=== PATIENT | female | born 1980 | race Caucasian/White ===

== ENCOUNTER 2019-03-07 11:02 | Inpatient (IN) | payer OTHER ==
[~2019-03-07] VITALS: Ht 167.6 cm; Wt 74.4 kg
--- NOTE | ~2019-03-07 | OP ---
[address] [address] OPERATIVE REPORT Name: RANDISHAHLA Room: [address] IN M.R.#: [id number] Admission: 03/07/19 Attend Phys: Ethan Andrews MD Discharge: Date of : 76 Report #: [id number] THIS REPORT FOR: //name// CC: [facility] physician/PCP Ethan Andrews DATE OF SERVICE: 03/07/2019 PREOPERATIVE DIAGNOSIS: Right ureteral stone with sepsis. POSTOPERATIVE DIAGNOSIS: Right ureteral stone with sepsis. PROCEDURES: Panendoscopy and cystoscopy, right retrograde pyelogram, right double-J stent. COMPLICATION: No complication. INDICATIONS: This is a 39-year-old female visiting from [place]. She has a known history of stones. She had severe right flank pain, nausea, vomiting and low grade fever to 100.1. She also has a blood pressure in the 80s systolically. Her urinalysis had significant pyuria. The patient was given options of treatment and I recommended right ureteral stent and then eventual follow up in [place] to take care of her stone. She understands risks of bleeding, infection, need for another procedure, cardiovascular and pulmonary complications and she voiced understanding that she is to follow up in [place] for her stent. I gave her the name of Dr. Philippe Watson as one example of urologists in [place]. DESCRIPTION OF PROCEDURE: After informed consent was obtained, the patient was sterilely prepped and draped in dorsal lithotomy position, given appropriate antibiotic Cipro. Cystoscopy was carried out. Her urethral meatus was stenotic, down to approximately 15-Hungarian. I was able to dilate it with Arnaldo sounds up to 24-Hungarian and got the 23-Hungarian obturator placed. No abnormalities seen in the bladder. There was a little bit of milky urine, but not obvious pus in the bladder. Retrograde pyelogram was performed under low pressure showing the filling defect in the mid ureter that corresponded with the CT scan, which is approximately 6 x 9 mm in size in the upper mid ureter. A sensor wire was used and passed easily by the stone into the upper tract and a 6 x 28 contour stent was then placed showing good curl in the kidney and good curl in the bladder. There was a mild hydronephrotic drip of somewhat milky urine, but not overt pus. The patient tolerated this well, taken to recovery room in good condition. Her bladder was drained and lidocaine was instilled. By: [id number] Chanel MD /mila
[2019-03-07 11:21] VITALS: BP 109/61
[2019-03-07 11:26] LABS: URINE BILIRUBIN NEGATIVE (Negative); URINE BLOOD 2+ (Negative); URINE CLARITY SL CLOUDY; URINE COLOR YELLOW; URINE GLUCOSE-RANDOM NEGATIVE (Negative); URINE KETONES NEGATIVE (Negative); URINE LEUKOCYTES-REFLEX TRACE (Negative); URINE NITRITE-REFLEX POSITIVE (Negative); URINE PROTEIN 2+ (Negative); URINE SPECIFIC GRAVITY 1.025 (1.005-1.030); URINE UROBILINOGEN 0.2 E.U./dl (0.2-1.0)
[2019-03-07 11:39] LABS: MUCUS >6 Heavy strn/LPF (None Seen); SQUAMOUS >10 Many /LPF (0-3)
[2019-03-07 11:40] LABS: HYALINE CASTS 0-3 Few /LPF (None Seen); URINE WBC-REFLEX >25 Many /HPF (0-5); WBC CLUMPS Few (None Seen)
[2019-03-07 11:41] LABS: BACTERIA-REFLEX >30 Many /HPF (None Seen); URINE RBC 3-10 Few /HPF (0-2)
[2019-03-07 12:00] LABS: HEMATOCRIT 42.9 % (37.0-47.0); HEMOGLOBIN 14.5 gm/dL (12.0-15.0); MCHC 33.9 g/dL (28.0-37.0); MCV 88.7 fL (80.0-100.0); MPV 8.3 fl. (7.2-11.1); NUCLEATED RBCS 0 /100WBC; PLATELET COUNT* 275 thou/uL (150-400); RBC 4.84 mil/uL (4.20-5.00); WBC 18.2 thou/uL (4.0-11.0)
[2019-03-07 12:08] LABS: CALCIUM 9.5 mg/dL (8.5-10.1); CREATININE 0.8 mg/dL (0.6-1.3); POTASSIUM 3.5 mmol/L (3.5-5.1)
[2019-03-07 12:13] LABS: ALBUMIN 4.3 g/dL (3.4-5.0); TOTAL BILIRUBIN 0.6 mg/dL (<0.1-1.0); TOTAL PROTEIN 7.6 g/dL (6.4-8.2)
[2019-03-07 13:01] LABS: ABSOLUTE LYMPHOCYTES 0.9 thou/uL (0.8-5.3); ABSOLUTE MONOCYTES 1.5 thou/uL (0.0-1.2); ABSOLUTE NEUTROPHILS 15.8 thou/uL (1.6-8.1)
[2019-03-07 13:02] LABS: PLATELET ESTIMATE ADEQUATE
[2019-03-07 15:09] VITALS: BP 90/54
[2019-03-07 15:25] VITALS: BP 87/53
--- NOTE | 2019-03-07 15:25 | NUR ---
ADMIT NOTE - PT ADMITTED FROM ED VIA CART. ABLE TO AMBULATE FROM CART TO BED WITHOUT DIFFICULTY. URINE STRAINER PLACED IN BR. ORIENTED TO CALL LIGHT AND SURROUNDINGS. WILL CONTINUE TO MONITOR.
[2019-03-07 19:23] VITALS: BP 90/53
[2019-03-08 00:34] VITALS: BP 91/53
--- NOTE | 2019-03-08 04:56 | NUR ---
PATIENT RETURNED FROM PACU AT 1930 BY BED IN STABLE CONDITION. HAS RESUMED REGULAR DIET WITHOUT NAUSEA. UP INDEPENDENTLY TO VOID. MEDICATED Q3H FOR PAIN TO GOOD EFFECT. VITAL SIGNS STABLE. CONTINUE TO STRAIN URINE. CONTINUE TO MONITOR.
[2019-03-08 05:01] LABS: CALCIUM 8.9 mg/dL (8.5-10.1); CREATININE 0.9 mg/dL (0.6-1.3); MAGNESIUM 1.7 mg/dL (1.8-2.4); POTASSIUM 4.4 mmol/L (3.5-5.1)
[2019-03-08] MEDS ORDERED: ZOFRAN ODT4 MG DISSOLVE (08:28)
[2019-03-08] MEDS ORDERED: NORCO 5-325 TA1 EAC1 PO (08:28)
[2019-03-08] MEDS ORDERED: LEVSIN0.125 MG PO (08:28)
[2019-03-08] MEDS ORDERED: CIPRO500 MG PO (08:28)
[2019-03-08 08:45] VITALS: BP 95/55
[2019-03-08 11:26] VITALS: BP 91/53
[2019-03-08 11:31] VITALS: BP 91/53
--- NOTE | 2019-03-08 12:05 | NUR ---
PATIENT DISCHARGED FROM UNIT AT 1155. ALERT AND ORIENTED X 4. VITAL SIGNS STABLE ON ROOM AIR. AFEBRILE. IV DISCONTINUED. DENIES NAUSEA. PAIN BEING MANAGED WITH PAIN MEDICATION. DISCHARGE INSTRUCTIONS, MEDICATION INFORMATION, AND SCRIPTS GIVEN TO PATIENT. LEFT WITH ALL BELONGINGS. PATIENT LEFT WITH VIA CAR.
[2019-03-08 12:07] VITALS: BP 91/53
--- NOTE | 2019-03-10 07:47 | CON ---
[address] [address] CONSULTATION Name: SHAHLA BRYAN Room: [address] IN M.R.#: [id number] Admission: 03/07/19 Attend Phys: Ethan Andrews MD Discharge: 03/08/19 Date of : 76 Report #: [id number] THIS REPORT FOR: //name// CC: [facility] physician/PCP Ethan Andrews DATE OF SERVICE: 03/07/2019 UROLOGY CONSULT REFERRING PHYSICIAN: Ethan Andrews MD REASON FOR CONSULTATION: Right ureteral calculus and flank pain. HISTORY OF PRESENT ILLNESS: This is a 39-year-old female who reports a history of multiple stones in the past. She has not required stone intervention. She does not currently follow with a urologist and believes her last stone episode was several years ago. She presented to the Emergency Department with fairly acute onset of right flank pain radiating to the right lower quadrant. She denies dysuria, gross hematuria or passage of fragments. She denies chills. She has had nausea and vomiting. She believes she had a low-grade fever of around 100. Denies any other recent illness. Denies difficulty voiding. PAST MEDICAL HISTORY: She states she is otherwise healthy. MEDICATIONS: Takes no routine medications. ALLERGIES: Include CLARITHROMYCIN and PENICILLIN. FAMILY HISTORY: She does not know of any family members with renal disease or stones. SOCIAL HISTORY: She drinks alcohol occasionally and smokes tobacco daily. REVIEW OF SYSTEMS: As per the history of present illness. No chest pain, shortness of breath, cough or palpitations. No gross hematuria. No easy bruising or bleeding. PHYSICAL EXAMINATION: VITAL SIGNS: Temperature 37.8, pulse 90, respirations 18 and blood pressure 87/53. GENERAL: This is a 39-year-old female in no acute distress. She is awake, alert and oriented x 3. She answers questions appropriately. HEENT: Normocephalic and atraumatic. NECK: Supple. No jugular venous distention. RESPIRATORY: Effort and excursion are normal. [place] [address] CONSULTATION Name: SHAHLA BRYAN Room: [address] IN [facility].#: [id number] Admission: 03/07/19 Attend Phys: Ethan Andrews MD Discharge: 03/08/19 Date of : 76 Report #: [id number] CARDIAC: Rhythm is regular. Radial pulses are palpable. EXTREMITIES: Warm. No peripheral edema. NEUROLOGIC: She moves all extremities well. ABDOMEN: Soft, nontender, and nondistended. She has tenderness in the right costovertebral angle. Spine and left costovertebral angle are nontender. Bladder is nonpalpable. PELVIC: Deferred. LABORATORY DATA: Include a sodium 141, potassium 3.5, chloride 103, CO2 of 27, BUN 9, creatinine 0.8 and glucose 104. Hemoglobin 14.5, white count 18.2 and platelet count 275,000. Urinalysis is positive for nitrite and bacteria, 3-10 red cells, greater than 25 white cells. Urine test is negative. Urinalysis also reveals many epithelial cells, possibly representing contaminant. Cultures of the blood and urine are pending. Noncontrast CT scan of the abdomen and pelvis reveals bilateral nonobstructing renal calculi as well as right hydronephrosis and perinephric stranding secondary to a 9 mm right proximal ureteral stone (maximum dimension 9 mm). Findings and options for management were discussed with at length. We discussed conservative management with IV fluids and medical expulsive therapy versus outpatient ESWL versus inpatient or outpatient ureteroscopic stone manipulation versus stenting with deferred stone management until UTI is either ruled out or treated. We will not initiate Flomax at this point as her systolic blood pressure is less than 100, but can certainly consider this if it improves with hydration. We discussed possibility of urgent intervention with stent placement if her clinical condition worsens. She voices clear understanding of all this and wants to manage this conservatively at this point. IMPRESSION: Bilateral renal calculi, right flank pain, right proximal ureteral calculus and possible urinary tract infection. PLAN: Continue Cipro empirically pending culture results. Repeat a BMP in the morning and check a KUB as well. Keep n.p.o. for now in case acute intervention is indicated. Increase IV fluid rate. Strain urine for calculi. We will follow along. <ELECTRONICALLY SIGNED> By: Henry Feliz MD 03/10/19 [id number] Feliz MD /nt
== END 2019-03-08 11:55 | disposition home or self-care (01) | DRG 854 ==
LOC: M.ERS 11:02 → M.ORTHSURG 13:50 → M.TBA-ER 13:50 → M.ORTHSURG 15:30
PROVIDERS: Personal Emergency Response Attendant; Urology; ADMIT Internal Medicine
PROC: 0T768DZ Dilation of Right Ureter with Intraluminal Device, Via Natural or Artificial Opening Endoscopic (ICD-10-PCS; principal; 2019-03-07)
PROC: BT1D1ZZ Fluoroscopy of Right Kidney, Ureter and Bladder using Low Osmolar Contrast (ICD-10-PCS; principal; 2019-03-07)
DX: A41.9 Sepsis, unspecified organism (principal); N13.6 Pyonephrosis; Z88.1 Allergy status to other antibiotic agents; Z88.0 Allergy status to penicillin